=== PATIENT | male | born 1940 | race Caucasian/White ===

== ENCOUNTER 2017-08-16 10:24 | Emergency (ER) | payer MEDICARE ==
[~2017-08-16] VITALS: Ht 190.5 cm; Wt 120.0 kg
[~2017-08-16 10:24] MED LIST: AMLO2.5T DIALYCATH; APIX2.5T PO; CARV3.122 PO; FURO-92 PO; GEMF600T3 PO; LOSA25TA5 PO; [UNRECOGNIZED DRUG - OTHER] PO
[2017-08-16 10:34] VITALS: BP 170/82
== END 2017-08-16 12:15 | disposition home or self-care (01) ==
LOC: ED 12:00
DX: T82.838A Hemorrhage due to vascular prosthetic devices, implants and grafts, initial encounter (principal); I10 Essential (primary) hypertension; Z99.2 Dependence on renal dialysis
CPT/HCPCS: 12001; 99283